=== PATIENT | female | born 1950 | race African-American/Black ===

== ENCOUNTER → 2017-12-03 | Outpatient (CLI) | payer BC, OTHER ==
[~2017-12-03] VITALS: Ht 170.2 cm; Wt 98.0 kg
[~2017-12-03] MED LIST: AMLODIPINE BESY10 MG PO; APRESOLINE25 MG PO; ATARAX,VISTARIL25 MG PO; BACTRIM,SEPT1 TABLE1 PO; CARVEDILOL6.25 MG PO; CATAPRES0.3 MG PO; CLONIDINE HCL0.3 MG PO; COREG25 M1 PO; COZAAR50 MG PO; EPIVIR150 MG PO; ISENTRESS400 MG PO; LAMIVUDINE150 MG PO; LASIX20 MG PO; LIPITOR20 MG PO; LISINOPRIL30 MG PO; LONITEN10 MG PO; NICOTINE PATCH1 EAC2 TD; NORVASC10 MG PO; NORVIR100 M1 PO; NORVIR100 MG PO; PREZISTA800 MG PO; PROAIR HFA8.5 GM IH; TENORMIN50 MG PO; VITAMIN D-32000 UNI2 PO; ZYLOPRIM300 MG PO; ZYRTEC10 M2 PO
== END | disposition home or self-care (01) ==
LOC: AMB 12:09
DX: Z12.11 Encounter for screening for malignant neoplasm of colon (principal); D12.3 Benign neoplasm of transverse colon; D12.5 Benign neoplasm of sigmoid colon; K57.30 Diverticulosis of large intestine without perforation or abscess without bleeding; K64.8 Other hemorrhoids; I13.0 Hypertensive heart and chronic kidney disease with heart failure and stage 1 through stage 4 chronic kidney disease, or unspecified chronic kidney disease; N18.9 Chronic kidney disease, unspecified; I50.9 Heart failure, unspecified; F17.200 Nicotine dependence, unspecified, uncomplicated; B20 Human immunodeficiency virus [HIV] disease; E78.00 Pure hypercholesterolemia, unspecified; E66.9 Obesity, unspecified; Z68.33 Body mass index [BMI] 33.0-33.9, adult; I27.20 Pulmonary hypertension, unspecified; Z80.0 Family history of malignant neoplasm of digestive organs; Z90.710 Acquired absence of both cervix and uterus; Z90.79 Acquired absence of other genital organ(s); Z90.722 Acquired absence of ovaries, bilateral; Z82.49 Family history of ischemic heart disease and other diseases of the circulatory system; Z82.0 Family history of epilepsy and other diseases of the nervous system; Z83.3 Family history of diabetes mellitus
CPT/HCPCS: 88305